=== PATIENT | female | born 1945 | race Caucasian/White ===

== ENCOUNTER → 2017-01-17 | Outpatient (CLI) | payer MEDICARE | LOC: KOH-I 11:11 | DX: M54.16 Radiculopathy, lumbar region (principal); M51.36 Other intervertebral disc degeneration, lumbar region; M51.37 Other intervertebral disc degeneration, lumbosacral region | CPT/HCPCS: 72148 ==

== ENCOUNTER 2020-09-17 19:13 | Observation (INO) | payer MEDICARE, OTHER ==
[~2020-09-17] VITALS: Ht 157.5 cm; Wt 62.6 kg
[~2020-09-17 19:13] MED LIST: ALBUTEROL2.5 MG/3 M INH; ASPIRIN EC81 MG PO; BUMETANIDE1 MG PO; BUMEX 1MG TABLET1 MG PO; CELEBREX200 MG PO; CELEXA10 MG PO; CELEXA20 MG PO; ESTRACE0.5 MG PO; FERROUS SULFAT325 M2 PO; GABAPENTIN400 MG PO; ILEVRO1.7 ML EYEBOTH; K-DUR TAB 20 M20 MEQ PO; KEFLEX CAP 500500 MG PO; KLONOPIN TAB 00.5 MG PO; LEVOFLOXACIN500 MG PO; NEURONTIN 400400 MG PO; NORCO 5-325 TA1 EACH PO; PREDNISONE 50 M50 MG PO; PROAIR HFA8.5 GM INH; PROTONIX40 MG PO; SYMBICORT 80-10.2 GM INH; TOPROL XL50 MG PO; VENTOLIN HFA 66.7 GM INH; VIBRAMYCIN100 MG PO; VOLTAREN EC 5050 MG PO
[2020-09-18 01:54] LABS: HEMOGLOBIN 12.4 gm/dl (12.3-15.3); RED BLOOD COUNT 4.06 M/UL (4.00-5.10); WHITE BLOOD COUNT 5.4 K/UL (4.5-11.0)
[2020-09-18 02:28] LABS: BUN/CREATININE RATIO 21 (0-10)
[2020-09-18] MEDS ORDERED: MACRODANTIN100 MG PO (03:51)
[2020-09-18] MEDS ORDERED: ZOFRAN 4 MG TAB4 MG PO (03:51)
[2020-09-18] MEDS ORDERED: NORVASC5 MG PO (06:05)
[2020-09-18] MEDS ORDERED: CEFUROXIME250 MG PO (11:49)
[2020-09-18] MEDS ORDERED: ASPIRIN EC81 MG PO (11:49)
== END 2020-09-18 13:53 | disposition home or self-care (01) ==
LOC: ER1 19:13 → CDU 09-18 05:41 → MED SURG 4 09-18 05:41
PROVIDERS: Emergency Medicine; ADMIT Internal Medicine
DX: R77.8 Other specified abnormalities of plasma proteins (principal); C82.90 Follicular lymphoma, unspecified, unspecified site; J44.9 Chronic obstructive pulmonary disease, unspecified; F41.9 Anxiety disorder, unspecified; F32.9 Major depressive disorder, single episode, unspecified; Z77.22 Contact with and (suspected) exposure to environmental tobacco smoke (acute) (chronic); Z20.822 Contact with and (suspected) exposure to COVID-19; Z87.19 Personal history of other diseases of the digestive system; Z82.49 Family history of ischemic heart disease and other diseases of the circulatory system; Z79.899 Other long term (current) drug therapy
CPT/HCPCS: 36415; 36600; 70450; 71045; 80053; 81001; 82140; 82550; 82553; 82803; 83605; 83615; 83690; 84484; 85025; 87086; 93005; 94664; 96372; 96374; 97162; 99285; G0378; J0696; J1650; J7030; U0002